=== PATIENT | male | born 1935 | race Caucasian/White ===

== ENCOUNTER 2022-07-23 08:52 | Inpatient (IN) | payer OTHER, MEDICARE ==
[2022-07-23 09:24] VITALS: BMI 24.1
[2022-07-23] MEDS ORDERED: ASPIRIN 81 MG CHEWABLE TABLETS PO ONE (09:33)
[2022-07-23] MEDS ORDERED: ASPIRIN 81 MG CHEWABLE TABLETS ONE (09:38)
[2022-07-23] MEDS ORDERED: morphine CARPU-JECT 2 MG/1 ML DISP.SYRIN IVPUSH ONE (09:43)
[2022-07-23 10:02] LABS: HEMATOCRIT 39.8 % (35.4-49); HEMOGLOBIN 13.5 GM/dL (11.7-16.9); MCH 29.6 pg (25.7-33.7); MEAN CELL VOLUME 86.9 fl (80-96); PLATELET COUNT 157 10^3/uL (134-434); RBC 4.58 M/mm3 (4.00-5.60); RDW 13.6 % (11.9-15.9); WHITE BLOOD COUNT 11.7 K/mm3 (4.0-10.0)
[2022-07-23 10:08] LABS: INR 1.1 (0.83-1.09); PROTHROMBIN TIME (PATIENT) 12.7 SEC (9.7-13.0)
[2022-07-23 10:10] LABS: ACTIVATED PTT 27.1 SECONDS (25.2-36.5)
[2022-07-23 10:30] LABS: ALBUMIN 3.7 g/dl (3.4-5.0); BLOOD UREA NITROGEN 19.2 mg/dL (7-18); CALCIUM 8.6 mg/dL (8.5-10.1); MAGNESIUM 1.9 mg/dL (1.8-2.4)
[2022-07-23 10:33] LABS: CREATININE 1.3 mg/dL (0.55-1.3)
[2022-07-23 10:35] LABS: TOT PROT 6.6 g/dl (6.4-8.2)
[2022-07-23] MEDS ORDERED: FAMOTIDINE 20 MG/50 ML IVPB 20 MG/50 ML MG IVPB ONE ×2 (11:37→11:39)
[2022-07-23 11:53] LABS: ANISOCYTOSIS 2+; MACROCYTOSIS 0
[2022-07-23] MEDS ORDERED: SODIUM CHLORIDE 1,000 ML IV SCH (15:00)
[2022-07-23] MEDS ORDERED: MAG HYDROX/AL HYDROX/SIMETH 30 ML UNIT-DOSE CUP PO PRN (17:21)
[2022-07-23] MEDS: INSULIN SLIDING SCALE (NOVOLOG) 1 VIAL SQ SCH ×2 (18:02→21:29)
[2022-07-23] MEDS: PANTOPRAZOLE 40 MG TABLET PO SCH (21:28)
[2022-07-23] MEDS: POLYETHYLENE GLYCOL (HEALTHYLAX) 3350 17 GM PACKET PO SCH (21:29)
[2022-07-23] MEDS ORDERED: ATORVASTATIN CA 20 MG TABLET (FP) PO SCH (22:00)
[2022-07-24] MEDS: POLYETHYLENE GLYCOL (HEALTHYLAX) 3350 17 GM PACKET PO SCH ×2 (06:12→15:33)
[2022-07-24] MEDS: INSULIN SLIDING SCALE (NOVOLOG) 1 VIAL SQ SCH ×2 (06:26→12:31)
[2022-07-24] MEDS: PANTOPRAZOLE 40 MG TABLET PO SCH (09:04)
[2022-07-24 09:10] LABS: BASO % 0.3 % (0-2.0); EOS % 0.1 % (0-4.5); HEMATOCRIT 38.2 % (35.4-49); HEMOGLOBIN 13.1 GM/dL (11.7-16.9); LYMPH % 14.6 % (8-40); MCHC 34.3 g/dl (32.0-35.9); MEAN CELL VOLUME 87.5 fl (80-96); MEAN PLT VOLUME 8.5 fl (7.5-11.1); MONO % 9.8 % (3.8-10.2); NEUT % 75.2 % (42.8-82.8); PLATELET COUNT 170 10^3/uL (134-434); RBC 4.36 M/mm3 (4.00-5.60); RDW 14.1 % (11.9-15.9); WHITE BLOOD COUNT 13.5 K/mm3 (4.0-10.0)
[2022-07-24 09:16] LABS: INR 1.52 (0.83-1.09); PROTHROMBIN TIME (PATIENT) 17.6 SEC (9.7-13.0)
[2022-07-24 09:17] LABS: ACTIVATED PTT 30.4 SECONDS (25.2-36.5)
[2022-07-24 09:39] LABS: TOT PROT 6.1 g/dl (6.4-8.2)
[2022-07-24 09:41] LABS: BILIRUBIN,TOTAL 1.9 mg/dL (0.2-1)
[2022-07-24 09:42] LABS: ALBUMIN 3.3 g/dl (3.4-5.0); BLOOD UREA NITROGEN 18.2 mg/dL (7-18); CALCIUM 8.2 mg/dL (8.5-10.1); MAGNESIUM 1.9 mg/dL (1.8-2.4)
[2022-07-24 09:46] LABS: CREATININE 1.5 mg/dL (0.55-1.3)
[2022-07-24 09:47] LABS: PHOSPHOROUS 2.3 mg/dL (2.5-4.9)
[2022-07-24] MEDS ORDERED: metoPROLOL SUCCINATE 25 MG TAB.SR.24H (FP) PO SCH (10:00)
[2022-07-24] MEDS ORDERED: PANTOPRAZOLE 40 MG TABLET PO SCH (10:00)
[2022-07-24] MEDS ORDERED: NAPH,MB-DB/K PH,MBDB POWDER PACKET PO ONE (10:11)
[2022-07-24 10:49] VITALS: RESP 18
[2022-07-24 10:51] VITALS: BP 129/62; PULSE 85; TEMP 97.8
== END 2022-07-24 16:44 | disposition home or self-care (01) | DRG 392 ==
LOC: JER 08:52 → JERBED 13:29 → OBSVTOIN 14:49 → J4S 20:51
PROVIDERS: ADMIT Internal Medicine; ATTEND Internal Medicine
DX: K21.9 Gastro-esophageal reflux disease without esophagitis (principal); K56.41 Fecal impaction; R10.13 Epigastric pain; I25.10 Atherosclerotic heart disease of native coronary artery without angina pectoris; I10 Essential (primary) hypertension; E78.5 Hyperlipidemia, unspecified; I25.2 Old myocardial infarction; I73.9 Peripheral vascular disease, unspecified; D72.829 Elevated white blood cell count, unspecified; E11.51 Type 2 diabetes mellitus with diabetic peripheral angiopathy without gangrene; Z87.11 Personal history of peptic ulcer disease; Z85.46 Personal history of malignant neoplasm of prostate; Z95.5 Presence of coronary angioplasty implant and graft; H40.9 Unspecified glaucoma; K29.70 Gastritis, unspecified, without bleeding
CPT/HCPCS: 36415; 71045-TC-FY; 74177-TC; 80053; 80061; 82550; 82962; 83036; 83690; 83735; 84100; 84443; 84484; 85025; 85610; 85730; 93005; 93010; 93306-TC; 99285-25; C9803-CS; G0378; Q9967; U0003; U0005

== ENCOUNTER 2022-08-27 04:11 | Day surgery (SDC) | payer OTHER, MEDICARE ==
[2022-08-27 08:21] VITALS: BMI 25.0
[2022-08-27 10:13] VITALS: BP 149/82; PULSE 60; RESP 18; TEMP 97
== END 2022-08-27 10:21 | disposition home or self-care (01) ==
LOC: JASU-ENDO 04:11
PROVIDERS: ATTEND Internal Medicine Gastroenterology
PROC: 0DBK8ZX Excision of Ascending Colon, Via Natural or Artificial Opening Endoscopic, Diagnostic (ICD-10-PCS; 2022-08-27)
PROC: 0DBN8ZX Excision of Sigmoid Colon, Via Natural or Artificial Opening Endoscopic, Diagnostic (ICD-10-PCS; 2022-08-27)
PROC: 0DB98ZX Excision of Duodenum, Via Natural or Artificial Opening Endoscopic, Diagnostic (ICD-10-PCS; 2022-08-27)
PROC: 0DB78ZX Excision of Stomach, Pylorus, Via Natural or Artificial Opening Endoscopic, Diagnostic (ICD-10-PCS; 2022-08-27)
PROC: 0DBL8ZX Excision of Transverse Colon, Via Natural or Artificial Opening Endoscopic, Diagnostic (ICD-10-PCS; principal; 2022-08-27 09:00)
DX: Z12.11 Encounter for screening for malignant neoplasm of colon (principal); D12.3 Benign neoplasm of transverse colon; D12.2 Benign neoplasm of ascending colon; D12.5 Benign neoplasm of sigmoid colon; K29.70 Gastritis, unspecified, without bleeding; K55.20 Angiodysplasia of colon without hemorrhage; K64.8 Other hemorrhoids; Z87.19 Personal history of other diseases of the digestive system; I10 Essential (primary) hypertension
CPT/HCPCS: 88305-TC; 88342-TC